=== PATIENT | male | born 1980 | race Hispanic/Latino ===

== ENCOUNTER 2016-07-20 17:47 | Emergency (ER) | payer SELFPAY ==
[2016-07-20 18:19] VITALS: TEMP 98
[2016-07-20] MEDS ORDERED: Sodium Chloride 0.9% 1,000 ML IV ONE (18:26)
--- NOTE | 2016-07-20 18:31 | C.PDOC ---
History Of Present Illness 35 year old male presents to the ED with complaints of hematuria and acute onset of left flank pain beginning approximately four hours prior to arrival. Patient notes a history of renal colic and a recent evaluation for knee pain and was prescribed tramadol with no relief. Patient denies any nausea, vomiting , or another complaints at this time. Time Seen by Provider: 07/20/16 18:26 Chief Complaint (Nursing): Male Genitourinary History Per: Patient History/Exam Limitations: no limitations Onset/Duration Of Symptoms: Hrs Current Symptoms Are (Timing): Still Present Quality Of Discomfort: "Pain" Associated Symptoms: denies: Fever, Chills, Nausea, Vomiting, Diarrhea Recent travel outside of the [place]: No Past Medical History Reviewed: Historical Data, Nursing Documentation, Vital Signs Vital Signs: Last Vital Signs Temp 98 F 07/20/16 18:05 Pulse 82 07/20/16 21:02 Resp 18 07/20/16 21:02 BP 113/72 07/20/16 21:02 Pulse Ox 100 07/21/16 00:39 - Medical History PMH: Anxiety, Arthritis, Asthma ("The doctors told me I have asthma"), HTN ( Diastolic dysfunction Stage II), Migraine - [facility] Procedures INJECT/INFUSE NEC (12/29/12) NEBULIZER THERAPY (02/03/13) Family History: States: Unknown Family Hx - Social History Hx Tobacco Use: Yes Hx Alcohol Use: Yes (Social drinker) Hx Substance Use: No - Immunization History Hx Tetanus Toxoid Vaccination: No Hx Influenza Vaccination: No Hx Pneumococcal Vaccination: No Review Of Systems Constitutional: Negative for: Fever, Chills, Sweats Cardiovascular: Negative for: Chest Pain Respiratory: Negative for: Cough, Shortness of Breath Gastrointestinal: Positive for: Other (left flank pain ). Negative for: Nausea , Vomiting, Diarrhea Genitourinary: Positive for: Hematuria Physical Exam - Physical Exam Appears: Non-toxic, No Acute Distress Skin: Warm, Dry Neck: Normal ROM, Supple Cardiovascular: Rhythm Regular Respiratory: No Rales, No Rhonchi, No Stridor, No Wheezing Gastrointestinal/Abdominal: Soft, Tenderness (dull achy tenderness to LLQ ), No Distention, No Guarding, No Rebound, Other (pain to percussion in left flank ) Extremity: Normal ROM, No Tenderness Neurological/Psych: Oriented x3 ED Course And Treatment - Laboratory Results Result Diagrams: 07/20/16 18:35 07/20/16 18:35 Lab Interpretation: Abnormal (+ hematuria) O2 Sat by Pulse Oximetry: 100 Reevaluation Time: 20:28 Reassessment Condition: Improved Medical Decision Making Medical Decision Making: recurrent L renal colic, tiny 2 mm stone @ [facility] Disposition Doctor Will See Patient In The: Office Counseled Patient/Family Regarding: Studies Performed, Diagnosis - Disposition Referrals: Kg Richard MD [Staff Provider] - Disposition: HOME/ ROUTINE Disposition Time: 20:29 Condition: GOOD Additional Instructions: drink liberal fluids Naproxyn 500 mg every 12 or Motrin 600 mg every 6 hours for pain pepcid 20 mg @ night to prevent stomach irritation from the NSAIDS Follow-up with Dr. Zuniga- Urology, for further eval Instructions: Renal Colic (ED) - Clinical Impression Clinical Impression: Renal colic on left side - Scribe Statement The provider has reviewed the documentation as recorded by the Scribjez Bunch All medical record entries made by the Edisonibjez were at my direction and personally dictated by me. I have reviewed the chart and agree that the record accurately reflects my personal performance of the history, physical exam, medical decision making, and the department course for this patient. I have also personally directed, reviewed, and agree with the discharge instructions and disposition.
[2016-07-20] MEDS ORDERED: Sodium Chloride 0.9% 1,000 ML ONE (18:36)
[2016-07-20 18:38] LABS: BASO # 0.1 K/uL (0.0-0.2); BASO % 0.5 % (0.0-2.0); EOS # 0.1 K/uL (0.0-0.7); EOS % 0.9 % (0.0-4.0); HEMATOCRIT 42.5 % (35.0-51.0); LYMPH # 1.7 K/uL (1.0-4.3); LYMPH % 12.6 % (20.0-40.0); MEAN CELL VOLUME 79.9 fL (80.0-94.0); MEAN CORPUSCULAR HEMOGLOBIN 26.6 pg (27.0-31.0); MEAN CORPUSCULAR HGB CONC 33.3 g/dL (33.0-37.0); MEAN PLATELET VOLUME 8.5 fL (7.2-11.7); MONO # 0.9 K/uL (0.0-0.8); MONO % 6.7 % (0.0-10.0); NRBC % 0.1 % (0.0-2.0); RED CELL DISTRIBUTION WIDTH 14.2 % (11.5-14.5); WHITE BLOOD COUNT 13.6 K/uL (4.8-10.8)
[2016-07-20 18:46] LABS: CHLORIDE 101 mmol/L (98-107)
[2016-07-20 18:47] LABS: POTASSIUM 3.9 mmol/L (3.6-5.2); SODIUM 136 mmol/L (132-148)
[2016-07-20 18:49] LABS: ALB/GLOB RATIO 1.1 (1.0-2.1); ALKALINE PHOSPHATASE 59 U/L (38-126); AST/SGOT 27 U/L (17-59); BILIRUBIN,TOTAL 0.9 mg/dL (0.2-1.3); BLOOD UREA NITROGEN 18 mg/dL (9-20); CARBON DIOXIDE 18 mmol/L (22-30); GFR AFRICAN-AMERICAN > 60; TOTAL PROTEIN 8.3 g/dL (6.3-8.3)
[2016-07-20 18:50] LABS: ALT/SGPT 19 U/L (21-72); CALCIUM 9.2 mg/dl (8.6-10.4); GLUCOSE,RANDOM 126 mg/dL (75-110)
[2016-07-20 18:59] LABS: RBC URINE 400 /hpf (0-3); URINE BACTERIA RARE (<OCC); URINE BILIRUBIN NEGATIVE (NEGATIVE); URINE BLOOD 3+ (NEGATIVE); URINE COLOR Amber (YELLOW); URINE GLUCOSE (UA) NORMAL (Normal); URINE KETONE 1+ mg/dL (NEGATIVE); URINE LEUKOCYTE ESTERASE NEG Leu/uL (Negative); URINE PROTEIN 2+ mg/dL (NEGATIVE); URINE UROBILINOGEN NORMAL mg/dL (0.2-1.0); WBC URINE 6 /hpf (0-5)
[2016-07-20 21:03] VITALS: BP 113/72; PULSE 82; RESP 18
[2016-07-21 00:31] VITALS: O2SAT 100
--- NOTE | 2016-07-21 11:10 | RAD ---
HISTORY: ? L renal colic- KUB x 1 view COMPARISON: None FINDINGS: BOWEL: Normal. No obstruction. No free air. BONES: Normal. OTHER FINDINGS: Calcified pelvic phlebolith seen overlying inferior aspect right true pelvis IMPRESSION: No active disease.
--- NOTE | 2016-07-21 11:32 | CT ---
PROCEDURE: CT Abdomen and Pelvis .. HISTORY: L flank to groin, ? renal colic COMPARISON: None. TECHNIQUE: Contiguous axial images of the abdomen and pelvis. . No oral or IV contrast given. Coronal and Sagittal reformats generated. Radiation dose: Total exam DLP = 398.25 MGy-cm. This CT exam was performed using one or more of the following dose reduction techniques: Automated exposure control, adjustment of the mA and/or kV according to patient size, and/or use of iterative reconstruction technique. FINDINGS: LOWER THORAX: Unremarkable. LIVER: Liver is mildly enlarged measuring approximately 20 cm in CC dimension the GALLBLADDER AND BILE DUCTS: Unremarkable. PANCREAS: Unremarkable. No mass. No ductal dilatation. SPLEEN: Borderline enlarged 13 cm ADRENALS: Unremarkable. KIDNEYS AND URETERS: Asymmetrically enlarged right left kidney with mild to moderate hydronephrosis and mild hydroureter consistent with recently passed calculus which is seen within the bladder as detailed below. Punctate nonobstructing calculus upper pole left kidney BLADDER: Small the 2-3 mm calculus noted within the left posterior margin of the bladder lumen the in the bladder has been detailed below REPRODUCTIVE: Unremarkable. APPENDIX: . What probably represents abdomen the appendix is seen on axial images numbers 52 through 58 no periappendiceal inflammatory changes. BOWEL: Unremarkable. No obstruction. No gross mural thickening. PERITONEUM: Unremarkable. No fluid collection. No free air. LYMPH NODES: Unremarkable. No enlarged lymph nodes. VASCULATURE: Unremarkable. No aortic aneurysm. BONES: Small central and bilateral disc bulge at L5-S1 level OTHER FINDINGS: None. IMPRESSION: Recently passed left-sided calculus which is now located in the lumen of the urinary bladder. Mild left-sided hydronephrosis. Tiny nonobstructing calculus upper pole left kidney. Mild hepatomegaly. Borderline -mild splenomegaly.
== END 2016-07-20 21:08 | disposition home or self-care (01) ==
LOC: C.ER 17:47
DX: N23 Unspecified renal colic (principal)
CPT/HCPCS: 74000; 74176; 80053; 81001; 83690; 85025; 96361; 96374; 96375; 99284; G0480; J1885; J2405; J7040